=== PATIENT | female | born 1960 | race Caucasian/White ===

== ENCOUNTER 2019-08-07 22:36 | Emergency (ER) | payer BC ==
[~2019-08-07] VITALS: Ht 162.6 cm; Wt 59.0 kg
[2019-08-07] MEDS ORDERED: ZESTRIL10 MG PO (22:48)
[2019-08-07] MEDS ORDERED: LEVO-T50 MCG PO (22:49)
[2019-08-07] MEDS ORDERED: BUTALB-APAP-CA1 EACH PO (22:49)
[2019-08-07] MEDS ORDERED: LIPITOR 20 MG T20 M1 PO (22:49)
[2019-08-07] MEDS ORDERED: CLOBETASOL PROP15 GM TOP (22:50)
[2019-08-07] MEDS ORDERED: RESTORIL15 M1 PO (22:50)
[2019-08-07] MEDS ORDERED: NYSTATIN-TRIAMC15 GM TOP (22:51)
[2019-08-07 23:25] LABS: ABSOLUTE BASOPHILS 0.1 thou/uL (0.0-0.2); ABSOLUTE EOSINOPHILS 0.4 thou/uL (0.0-0.7); ABSOLUTE LYMPHOCYTES 2.6 thou/uL (0.8-5.3); ABSOLUTE MONOCYTES 0.6 thou/uL (0.0-1.2); ABSOLUTE NEUTROPHILS 4.1 thou/uL (1.6-8.1); BASOPHILS 1.5 %; EOSINOPHILS 5.5 %; HEMATOCRIT 39.7 % (37.0-47.0); HEMOGLOBIN 13.7 gm/dL (12.0-15.0); MCH 31.6 pg (26.0-34.0); MCHC 34.6 g/dL (28.0-37.0); MCV 91.4 fL (80.0-100.0); MONOCYTES 8.2 %; MPV 9.2 fl. (7.2-11.1); NUCLEATED RBCS 0 /100WBC; PLATELET COUNT* 235 thou/uL (150-400); POLYS 51.8 %; RBC 4.34 mil/uL (4.20-5.00); RDW-CV 12.7 % (10.5-14.5); WBC 7.8 thou/uL (4.0-11.0)
[2019-08-07 23:41] LABS: CREATININE 0.9 mg/dL (0.6-1.3); POTASSIUM 3.7 mmol/L (3.5-5.1)
[2019-08-08 00:45] LABS: ESR (SEDRATE) 12 mm/hr (0-30)
[2019-08-08] MEDS ORDERED: KEFLEX500 M1 PO (01:01)
[2019-08-08] MEDS ORDERED: NORCO 5-325 TA1 EAC1 PO (01:01)
[2019-08-08 01:26] VITALS: BP 128/74
== END 2019-08-08 01:26 | disposition home or self-care (01) ==
LOC: M.ERS 22:36
PROVIDERS: Emergency Medicine Emergency Medical Services
DX: L03.114 Cellulitis of left upper limb (principal); M67.432 Ganglion, left wrist; I10 Essential (primary) hypertension